=== PATIENT | female | born 1975 | race Caucasian/White ===

== ENCOUNTER 2021-04-24 14:35 | Inpatient (IN) | payer MEDICAID ==
[~2021-04-24] VITALS: Ht 160 cm; Wt 69.7 kg
[~2021-04-24 14:35] MED LIST: AMOX500T2 PO; CLAR-44 PO; FAMO40TA70 PO; HYDR-523 PO; IBUP-2028 PO; METF-414 PO; METO-293 PO
[2021-04-24] MEDS ORDERED: ONDANSETRON HCL 4MG/2ML INJ IV STA (15:54)
[2021-04-24] MEDS ORDERED: MORPHINE SULFATE 4 MG/ML CPJ (NOT FOR IM USE) IV STA (15:54)
[2021-04-24] MEDS ORDERED: SODIUM CHLORIDE 0.9% 1,000 ML IV ONE (16:00)
[2021-04-24 16:42] LABS: BASOPHILS % 0.2 % (0.0-2.0); EOSINOPHILS % 0.5 % (0.0-5.0); HEMATOCRIT. 43.6 % (36.0-48.0); HEMOGLOBIN. 15.1 g/dL (12.0-16.0); LYMPHOCYTES % 12.1 % (20.0-50.0); MEAN CORPUSCULAR HEMOGLOBIN 30.3 pg (28.0-32.0); MEAN CORPUSCULAR VOLUME 87.8 fL (81.0-99.0); MEAN PLATELET VOLUME 8.2 fl (7.4-10.4); MONOCYTES % 6.3 % (2.0-8.0); NEUTROPHILS % 80.9 % (40.0-76.0); PLATELET 309 x1000/uL (130-400); RED BLOOD CELL COUNT 4.96 mill/uL (4.2-5.4); RED CELL DISTRIBUTION WIDTH 12.5 % (11.6-14.6)
[2021-04-24 16:47] LABS: CHLORIDE 102 mEq/L (98-107)
[2021-04-24 16:48] LABS: PROTHROMBIN TIME 10.9 sec (9.6-11.0)
[2021-04-24 16:53] LABS: ETHANOL BLOOD < 10 mg/dL
[2021-04-24] MEDS ORDERED: FENTANYL CITRATE/PF 50MCG/ML 2ML VIAL IV ONE (17:15)
[2021-04-24] MEDS ORDERED: ONDANSETRON HCL 4MG/2ML INJ IV ONE (17:15)
[2021-04-24 17:46] LABS: CLARITY URINE CLEAR (CLEAR); COLOR URINE YELLOW (YELLOW); KETONES URINE 3+ (NEGATIVE); LEUKOCYTE ESTERASE URINE NEGATIVE (NEGATIVE); NITRITE URINE NEGATIVE (NEGATIVE); OCCULT BLOOD URINE 3+ (NEGATIVE); PROTEIN URINE 3+ (NEGATIVE); SPECIFIC GRAVITY URINE 1.043 (1.005-1.030); UROBILINOGEN URINE 0.2 E.U./dL (0.2-1.0)
[2021-04-24 17:57] LABS: *BARBITURATES SCREEN URINE NEGATIVE (NEGATIVE); *BENZODIAZEPINES SCREEN URINE NEGATIVE (NEGATIVE); *COCAINE SCREEN URINE NEGATIVE (NEGATIVE); CANNABINOID URINE SCREEN NEGATIVE (NEGATIVE); METHADONE URINE SCREEN NEGATIVE (NEGATIVE); PHENCYCLIDINE URINE SCREEN NEGATIVE (NEGATIVE)
[2021-04-24 17:59] LABS: *AMPHETAMINES SCREEN URINE NEGATIVE (NEGATIVE)
[2021-04-24 18:15] LABS: OPIATES URINE SCREEN PRESUMTIVE POSITIVE (NEGATIVE)
[2021-04-24] MEDS ORDERED: LORAZEPAM 2MG/ML CPJ IV ONE (19:00)
[2021-04-24] MEDS ORDERED: DEXT 5%/0.9% NACL 1,000 ML IV ONE (19:00)
[2021-04-24] MEDS ORDERED: CLONIDINE 0.1MG TABLET PO PRN (19:15)
[2021-04-24] MEDS ORDERED: DOCUSATE SODIUM 100MG CAPSULE PO PRN (19:15)
[2021-04-24] MEDS ORDERED: IPRATROPIUM/ALBUTEROL 0.5-3(2.5)MG/3ML NEB HHN PRN (19:15)
[2021-04-24] MEDS ORDERED: ACETAMINOPHEN 325MG TABLET PO PRN ×2 (19:15)
[2021-04-24 21:30] VITALS: BP 163/93
[2021-04-24 22:00] VITALS: BP 163/93
[2021-04-24] MEDS: ONDANSETRON HCL 4MG/2ML INJ IV PRN (23:08)
[2021-04-25] VITALS: BP 134/89
[2021-04-25] MEDS: LORAZEPAM 0.5MG TABLET PO PRN ×3 (02:40→18:29)
[2021-04-25] MEDS: HYDROCODONE/ACETAMINOPHEN 5/325MG TABLET PO PRN ×2 (02:41→14:37)
[2021-04-25 04:00] VITALS: BP 140/87
[2021-04-25 06:13] LABS: BASOPHILS % 0.4 % (0.0-2.0); HEMOGLOBIN. 14.5 g/dL (12.0-16.0); LYMPHOCYTES % 8.8 % (20.0-50.0); MEAN CORPUSCULAR HEMOGLOBIN 30.1 pg (28.0-32.0); MEAN PLATELET VOLUME 8.3 fl (7.4-10.4); MONOCYTES % 1.6 % (2.0-8.0); NEUTROPHILS % 89.2 % (40.0-76.0); PLATELET 356 x1000/uL (130-400); RED BLOOD CELL COUNT 4.83 mill/uL (4.2-5.4)
[2021-04-25 06:39] LABS: CHLORIDE 110 mEq/L (98-107)
[2021-04-25 08:00] VITALS: BP 150/91
[2021-04-25] MEDS: ONDANSETRON HCL 4MG/2ML INJ IV PRN (08:54)
[2021-04-25] MEDS: MORPHINE SULFATE 2 MG/ML CPJ (NOT FOR IM USE) IV PRN (08:55)
[2021-04-25 12:00] VITALS: BP 107/76
[2021-04-25] MEDS ORDERED: FAMOTIDINE 40MG TABLET PO SCH (12:15)
[2021-04-25 12:50] LABS: BG BASE EXCESS -5.6 mmol/L (-2.0-2.0); BG CARBOXYHEMOGLOBIN 0.2 % (0.5-1.5); BG DEOXYHEMOGLOBIN 2.5 % (0.0-5.0); BG METHEMOGLOBIN 0.3 % (0.0-1.5); BG OXYGEN SATURATION 97.5 % (92.0-98.5); BG PCO2 30.2 mmHg (35.0-45.0); BG PH 7.392 (7.350-7.450); BG SAMPLE SITE RIGHT BRACHIAL; BG TOTAL HEMOGLOBIN 14.6 g/dL (12.0-18.0); BG VENT MODE ROOM AIR
[2021-04-25] MEDS ORDERED: FAMOTIDINE 20MG TABLET PO SCH (13:00)
[2021-04-25] MEDS: METOCLOPRAMIDE HCL 10MG/2ML VIAL IV SCH ×2 (14:37→18:07)
[2021-04-25] MEDS: SODIUM CHLORIDE 0.45% 1,000 ML IV SCH (14:38)
[2021-04-25 16:00] VITALS: BP 132/85
[2021-04-25 18:27] LABS: HCG SCREEN NEGATIVE
[2021-04-25] MEDS: PANTOPRAZOLE SODIUM 40 MG/VIAL IV SCH (18:29)
[2021-04-25 19:58] VITALS: BP 123/85
[2021-04-25] MEDS: PROCHLORPERAZINE MALEATE 25MG SUPP PR PRN (21:46)
[2021-04-26] VITALS: BP 169/94
[2021-04-26] MEDS: METOCLOPRAMIDE HCL 10MG/2ML VIAL IV SCH ×4 (00:11→17:45)
[2021-04-26] MEDS: MORPHINE SULFATE 2 MG/ML CPJ (NOT FOR IM USE) IV PRN ×2 (00:21→08:31)
[2021-04-26] MEDS: LORAZEPAM 0.5MG TABLET PO PRN ×3 (00:21→15:25)
[2021-04-26] MEDS: SODIUM CHLORIDE 0.45% 1,000 ML IV SCH ×2 (00:30→13:00)
[2021-04-26 07:07] LABS: HEMATOCRIT. 41.6 % (36.0-48.0); HEMOGLOBIN. 14.5 g/dL (12.0-16.0); LYMPHOCYTES % 21.2 % (20.0-50.0); MEAN CORPUSCULAR HEMOGLOBIN 29.7 pg (28.0-32.0); MEAN CORPUSCULAR VOLUME 85.4 fL (81.0-99.0); MEAN PLATELET VOLUME 9.1 fl (7.4-10.4); MONOCYTES % 5.4 % (2.0-8.0); NEUTROPHILS % 72.4 % (40.0-76.0); PLATELET 355 x1000/uL (130-400); RED BLOOD CELL COUNT 4.87 mill/uL (4.2-5.4); RED CELL DISTRIBUTION WIDTH 12.7 % (11.6-14.6)
[2021-04-26 07:10] LABS: CHLORIDE 110 mEq/L (98-107)
[2021-04-26 07:25] LABS: PHOSPHORUS 2.4 mg/dL (2.5-4.9)
[2021-04-26 07:26] LABS: LDL CHOLESTEROL 180 mg/dL (5-100)
[2021-04-26 07:27] LABS: HDL CHOLESTEROL 50 mg/dL (40-59)
[2021-04-26 07:47] VITALS: BP 123/75
[2021-04-26] MEDS: PANTOPRAZOLE SODIUM 40 MG/VIAL IV SCH (08:30)
[2021-04-26] MEDS: ONDANSETRON HCL 4MG/2ML INJ IV PRN ×2 (08:31→15:24)
[2021-04-26] MEDS ORDERED: DEXTROSE 50% WATER 50ML SYRINGE IV PRN (11:15)
[2021-04-26 11:29] VITALS: BP 138/81
[2021-04-26] MEDS: BLOOD SUGAR DIAGNOSTIC STRIP TEST SCH ×3 (12:27→21:16)
[2021-04-26] MEDS ORDERED: INSULIN LISPRO 100 UNITS/ML SUBCUT SCH (12:50)
[2021-04-26] MEDS: INSULIN LISPRO 100 UNITS/ML SUBCUT SCH ×3 (13:03→21:13)
[2021-04-26 15:41] VITALS: BP 145/93
[2021-04-26 20:00] VITALS: BP 134/86
[2021-04-26] MEDS: PROCHLORPERAZINE MALEATE 25MG SUPP PR PRN (20:34)
[2021-04-26] MEDS: HYDROCODONE/ACETAMINOPHEN 5/325MG TABLET PO PRN (20:41)
[2021-04-26] MEDS: ATORVASTATIN CALCIUM 20MG TABLET PO SCH (21:18)
[2021-04-27] VITALS: BP 112/76
[2021-04-27] MEDS: SODIUM CHLORIDE 0.45% 1,000 ML IV SCH ×2 (01:30→14:00)
[2021-04-27] MEDS: ONDANSETRON HCL 4MG/2ML INJ IV PRN ×2 (01:43→11:15)
[2021-04-27] MEDS: METOCLOPRAMIDE HCL 10MG/2ML VIAL IV SCH ×4 (01:44→18:00)
[2021-04-27] MEDS: LORAZEPAM 0.5MG TABLET PO PRN (01:50)
[2021-04-27 04:00] VITALS: BP 149/96
[2021-04-27] MEDS: PANTOPRAZOLE SODIUM 40 MG/VIAL IV SCH (05:13)
[2021-04-27] MEDS: MORPHINE SULFATE 2 MG/ML CPJ (NOT FOR IM USE) IV PRN (05:25)
[2021-04-27] MEDS: BLOOD SUGAR DIAGNOSTIC STRIP TEST SCH ×4 (06:23→21:09)
[2021-04-27 06:27] LABS: CHLORIDE 106 mEq/L (98-107)
[2021-04-27] MEDS: INSULIN LISPRO 100 UNITS/ML SUBCUT SCH ×4 (09:11→21:10)
[2021-04-27 12:20] VITALS: BP 144/99
[2021-04-27] MEDS: HYDROCODONE/ACETAMINOPHEN 5/325MG TABLET PO PRN (15:43)
[2021-04-27 16:15] VITALS: BP 144/79
[2021-04-27] MEDS: CLONAZEPAM 0.5MG TABLET PO SCH (18:00)
[2021-04-27 20:00] VITALS: BP 117/78
[2021-04-27] MEDS: ATORVASTATIN CALCIUM 20MG TABLET PO SCH (21:09)
[2021-04-28] VITALS: BP 148/91
[2021-04-28] MEDS: METOCLOPRAMIDE HCL 10MG/2ML VIAL IV SCH ×5 (01:30→17:27)
[2021-04-28] MEDS: MORPHINE SULFATE 2 MG/ML CPJ (NOT FOR IM USE) IV PRN ×2 (01:36→12:20)
[2021-04-28] MEDS: SODIUM CHLORIDE 0.45% 1,000 ML IV SCH ×2 (02:30→15:00)
[2021-04-28 04:00] VITALS: BP 112/73
[2021-04-28] MEDS: BLOOD SUGAR DIAGNOSTIC STRIP TEST SCH ×4 (08:10→20:28)
[2021-04-28 08:14] VITALS: BP 127/86
[2021-04-28] MEDS: PANTOPRAZOLE SODIUM 40 MG/VIAL IV SCH (08:31)
[2021-04-28] MEDS: CLONAZEPAM 0.5MG TABLET PO SCH ×2 (08:31→17:26)
[2021-04-28] MEDS: INSULIN LISPRO 100 UNITS/ML SUBCUT SCH ×4 (08:38→20:50)
[2021-04-28 12:20] VITALS: BP 127/77
[2021-04-28 16:09] VITALS: BP 126/82
[2021-04-28] MEDS ORDERED: ATOR20TA PO (16:28)
[2021-04-28 20:00] VITALS: BP 113/74
[2021-04-28] MEDS: ATORVASTATIN CALCIUM 20MG TABLET PO SCH (20:44)
[2021-04-29] VITALS: BP 93/59
[2021-04-29] MEDS: METOCLOPRAMIDE HCL 10MG/2ML VIAL IV SCH ×3 (00:57→12:19)
[2021-04-29] MEDS: SODIUM CHLORIDE 0.45% 1,000 ML IV SCH (01:10)
[2021-04-29] MEDS: MORPHINE SULFATE 2 MG/ML CPJ (NOT FOR IM USE) IV PRN (02:31)
[2021-04-29 04:00] VITALS: BP 142/96
[2021-04-29] MEDS: ONDANSETRON HCL 4MG/2ML INJ IV PRN ×2 (04:02→08:34)
[2021-04-29] MEDS: PROCHLORPERAZINE MALEATE 25MG SUPP PR PRN (05:57)
[2021-04-29] MEDS: BLOOD SUGAR DIAGNOSTIC STRIP TEST SCH ×2 (06:47→12:14)
[2021-04-29] MEDS: INSULIN LISPRO 100 UNITS/ML SUBCUT SCH ×2 (06:51→12:20)
[2021-04-29 08:00] VITALS: BP 110/72
[2021-04-29] MEDS: PANTOPRAZOLE SODIUM 40 MG/VIAL IV SCH (08:34)
[2021-04-29] MEDS: CLONAZEPAM 0.5MG TABLET PO SCH (08:34)
[2021-04-29] MEDS ORDERED: INSLIS SUBCUT (09:23)
[2021-04-29 12:00] VITALS: BP 94/67
[2021-04-29] MEDS ORDERED: HYDR-4001 MT (13:48)
[2021-04-29] MEDS: HYDROCODONE/ACETAMINOPHEN 5/325MG TABLET PO PRN (15:12)
[2021-04-29 15:30] VITALS: BP 117/79
[2021-05-04] MEDS ORDERED: PROM25SU57 RC (18:58)
[2021-05-06] MEDS ORDERED: HYDR-4001 MT (13:13)
[2021-05-06] MEDS ORDERED: LORA-250 PO (13:13)
[2021-05-06] MEDS ORDERED: OMEP20CA14 PO (13:13)
[2021-05-06] MEDS ORDERED: ONDA4TAB5 MT (13:13)
== END 2021-04-29 16:00 | disposition home or self-care (01) ==
LOC: ER 14:35 → 6WST 17:41 → EDBEDREQTM 17:44 → EDBEDREQ 17:44 → ENRESERV 20:12 → 6WST 04-28 23:29
PROVIDERS: ADMIT Internal Medicine; ATTEND Internal Medicine
DX: K80.20 Calculus of gallbladder without cholecystitis without obstruction (principal); E11.65 Type 2 diabetes mellitus with hyperglycemia; R65.10 Systemic inflammatory response syndrome (SIRS) of non-infectious origin without acute organ dysfunction; F17.200 Nicotine dependence, unspecified, uncomplicated; D72.829 Elevated white blood cell count, unspecified; F43.10 Post-traumatic stress disorder, unspecified; F41.1 Generalized anxiety disorder; R31.9 Hematuria, unspecified; R82.71 Bacteriuria; R80.9 Proteinuria, unspecified; I10 Essential (primary) hypertension; Z79.84 Long term (current) use of oral hypoglycemic drugs; Z79.899 Other long term (current) drug therapy; Z79.2 Long term (current) use of antibiotics; Z90.49 Acquired absence of other specified parts of digestive tract; R81 Glycosuria; R82.4 Acetonuria
CPT/HCPCS: 36415; 36600; 71045; 76700; 80048; 80053; 80061; 80305; 80320; 81003; 82375; 82805; 82962; 83036; 83605; 83735; 84100; 84443; 84703; 85025; 86850; 86900; 93005; 99285; C1893; C9113; J1815; J2060; J2270; J2405; J2765; J3010; J7030; J7042; G0480

== ENCOUNTER 2021-06-01 08:04 | Inpatient (IN) | payer MEDICAID ==
[~2021-06-01] VITALS: Ht 160 cm; Wt 68.0 kg
[~2021-06-01 08:04] MED LIST changes: -AMOX500T2 PO; +ATOR20TA PO; -CLAR-44 PO; +HYDR-4001 MT; +INSLIS SUBCUT; +LORA-250 PO; +OMEP20CA14 PO; +ONDA4TAB5 MT; +PROM25SU57 RC
[2021-06-01] MEDS ORDERED: MORPHINE SULFATE 4 MG/ML CPJ (NOT FOR IM USE) IV STA (08:27)
[2021-06-01 09:09] LABS: BASOPHILS % 1.1 % (0.0-2.0); EOSINOPHILS % 0.9 % (0.0-5.0); HEMATOCRIT. 29.1 % (36.0-48.0); HEMOGLOBIN. 10.2 g/dL (12.0-16.0); LYMPHOCYTES % 9.7 % (20.0-50.0); MEAN CORPUSCULAR HEMOGLOBIN 29.4 pg (28.0-32.0); MEAN CORPUSCULAR VOLUME 83.7 fL (81.0-99.0); MEAN PLATELET VOLUME 7.3 fl (7.4-10.4); MONOCYTES % 9.5 % (2.0-8.0); NEUTROPHILS % 78.8 % (40.0-76.0); PLATELET 492 x1000/uL (130-400); RED BLOOD CELL COUNT 3.48 mill/uL (4.2-5.4); RED CELL DISTRIBUTION WIDTH 13.5 % (11.6-14.6)
[2021-06-01 09:17] LABS: CHLORIDE 94 mEq/L (98-107)
[2021-06-01 09:20] LABS: HCG SCREEN NEGATIVE
[2021-06-01] MEDS ORDERED: CLINDAMYCIN 600 MG in DEXTROSE 5% WATER 50 ML IV ONE (09:45)
[2021-06-01] MEDS ORDERED: LIDOCAINE HCL/PF 1% 10 MG/ML 5ML VIAL INFIL ONE (11:15)
[2021-06-01] MEDS ORDERED: MORPHINE SULFATE 4 MG/ML CPJ (NOT FOR IM USE) IV ONE (12:00)
[2021-06-01] MEDS ORDERED: DIPHENHYDRAMINE 50MG/ML VIAL IV PRN (12:45)
[2021-06-01] MEDS ORDERED: IPRATROPIUM/ALBUTEROL 0.5-3(2.5)MG/3ML NEB HHN PRN (12:45)
[2021-06-01] MEDS ORDERED: ACETAMINOPHEN 325MG TABLET PO PRN (12:45)
[2021-06-01] MEDS ORDERED: CLONIDINE 0.1MG TABLET PO PRN (12:45)
[2021-06-01] MEDS ORDERED: ONDANSETRON HCL 4MG/2ML INJ IV PRN (12:45)
[2021-06-01] MEDS ORDERED: IOHEXOL-300 100 ML BOTTLE ONE (14:56)
[2021-06-01] MEDS: SODIUM CHLORIDE 0.9% 1,000 ML IV SCH (15:15)
[2021-06-01] MEDS: CLINDAMYCIN 600MG PREMIX 50 ML IV SCH (20:31)
[2021-06-01] MEDS ORDERED: CEFEPIME 2,000 MG in DEXT 5% WATER 100 ML IV SCH (21:00)
[2021-06-02] MEDS ORDERED: INSULIN LISPRO 100 UNITS/ML SUBCUT ONE
[2021-06-02] MEDS ORDERED: DEXTROSE 50% WATER 50ML SYRINGE IV PRN (00:45)
[2021-06-02] MEDS: INSULIN LISPRO (LOW DOSE) 100 UNITS/ML SUBCUT SCH ×3 (03:00→12:44)
[2021-06-02 04:12] VITALS: BP 101/68
[2021-06-02] MEDS: CLINDAMYCIN 600MG PREMIX 50 ML IV SCH (04:24)
[2021-06-02 05:01] LABS: BASOPHILS % 0.4 % (0.0-2.0); EOSINOPHILS % 2.4 % (0.0-5.0); HEMOGLOBIN. 10.7 g/dL (12.0-16.0); LYMPHOCYTES % 19.2 % (20.0-50.0); MEAN CORPUSCULAR HEMOGLOBIN 29.3 pg (28.0-32.0); MEAN CORPUSCULAR VOLUME 84.6 fL (81.0-99.0); MEAN PLATELET VOLUME 7.4 fl (7.4-10.4); MONOCYTES % 6.7 % (2.0-8.0); NEUTROPHILS % 71.3 % (40.0-76.0); PLATELET 560 x1000/uL (130-400); RED BLOOD CELL COUNT 3.66 mill/uL (4.2-5.4); RED CELL DISTRIBUTION WIDTH 13.6 % (11.6-14.6)
[2021-06-02 05:10] LABS: CHLORIDE 100 mEq/L (98-107)
[2021-06-02 05:20] LABS: LDL CHOLESTEROL 91 mg/dL (5-100)
[2021-06-02 05:22] LABS: HDL CHOLESTEROL 20 mg/dL (40-59)
[2021-06-02] MEDS: SODIUM CHLORIDE 0.9% 1,000 ML IV SCH (05:25)
[2021-06-02] MEDS: BLOOD SUGAR DIAGNOSTIC STRIP TEST SCH ×2 (07:20→12:20)
[2021-06-02] MEDS ORDERED: CEFEPIME 2,000 MG in DEXT 5% WATER 100 ML IV SCH (08:00)
[2021-06-02] MEDS ORDERED: CLINDAMYCIN 600MG PREMIX 50 ML IV SCH (12:00)
== END 2021-06-02 12:51 | disposition left against medical advice (07) | DRG 720 ==
LOC: ER 08:36 → 6EST 12:02 → ENRESERV 06-02 03:32
PROVIDERS: ADMIT Internal Medicine; ATTEND Internal Medicine
PROC: 0H98XZZ Drainage of Buttock Skin, External Approach (ICD-10-PCS; principal; 2021-06-01)
DX: A41.9 Sepsis, unspecified organism (principal); E44.0 Moderate protein-calorie malnutrition; E11.65 Type 2 diabetes mellitus with hyperglycemia; E87.1 Hypo-osmolality and hyponatremia; D64.9 Anemia, unspecified; E87.6 Hypokalemia; F17.200 Nicotine dependence, unspecified, uncomplicated; L02.31 Cutaneous abscess of buttock; L03.317 Cellulitis of buttock; F32.9 Major depressive disorder, single episode, unspecified; F41.9 Anxiety disorder, unspecified; Z53.21 Procedure and treatment not carried out due to patient leaving prior to being seen by health care provider; Z79.899 Other long term (current) drug therapy; Z90.49 Acquired absence of other specified parts of digestive tract; Z68.26 Body mass index [BMI] 26.0-26.9, adult
CPT/HCPCS: 36415; 74177; 80053; 80061; 82962; 84145; 84443; 84703; 85025; 93005; 93970; 99285; J0692; J1815; J2270; J2405; J3490; J7060; Q9967

== ENCOUNTER 2021-08-02 07:47 | Emergency (ER) | payer MEDICAID ==
[~2021-08-02] VITALS: Ht 160 cm; Wt 63.0 kg
[2021-08-02] MEDS ORDERED: KETOROLAC 30MG/ML VIAL IV STA (08:11)
[2021-08-02] MEDS ORDERED: SODIUM CHLORIDE 0.9% 1,000 ML IV ONE (08:15)
[2021-08-02 08:59] LABS: BASOPHILS % 0.9 % (0.0-2.0); EOSINOPHILS % 2.1 % (0.0-5.0); HEMATOCRIT. 41.6 % (36.0-48.0); HEMOGLOBIN. 14.7 g/dL (12.0-16.0); LYMPHOCYTES % 12.6 % (20.0-50.0); MEAN CORPUSCULAR HEMOGLOBIN 30.2 pg (28.0-32.0); MEAN CORPUSCULAR VOLUME 85.7 fL (81.0-99.0); MEAN PLATELET VOLUME 7.9 fl (7.4-10.4); MONOCYTES % 7.2 % (2.0-8.0); NEUTROPHILS % 77.2 % (40.0-76.0); PLATELET 412 x1000/uL (130-400); RED BLOOD CELL COUNT 4.85 mill/uL (4.2-5.4); RED CELL DISTRIBUTION WIDTH 13.4 % (11.6-14.6)
[2021-08-02 09:05] LABS: CHLORIDE 102 mEq/L (98-107)
[2021-08-02 09:21] LABS: HCG SCREEN NEGATIVE
[2021-08-02] MEDS ORDERED: ONDANSETRON HCL 4MG/2ML INJ IV NR (10:30)
[2021-08-02] MEDS ORDERED: MORPHINE SULFATE 2 MG/ML CPJ (NOT FOR IM USE) IV NR (10:30)
[2021-08-02 10:58] LABS: CLARITY URINE CLEAR (CLEAR); COLOR URINE YELLOW (YELLOW); KETONES URINE NEGATIVE (NEGATIVE); LEUKOCYTE ESTERASE URINE NEGATIVE (NEGATIVE); NITRITE URINE NEGATIVE (NEGATIVE); OCCULT BLOOD URINE NEGATIVE (NEGATIVE); PH URINE 5.5 (4.5-8.0); PROTEIN URINE NEGATIVE (NEGATIVE); SPECIFIC GRAVITY URINE 1.052 (1.005-1.030); UROBILINOGEN URINE 0.2 E.U./dL (0.2-1.0)
[2021-08-02] MEDS ORDERED: IOHEXOL-300 100 ML BOTTLE ONE (11:07)
[2021-08-02] MEDS ORDERED: DICY10CA88 MT (11:17)
[2021-08-02 12:07] VITALS: BP 145/78
== END 2021-08-02 12:09 | disposition home or self-care (01) ==
LOC: ER 07:47
DX: R10.30 Lower abdominal pain, unspecified (principal); E11.65 Type 2 diabetes mellitus with hyperglycemia; R00.0 Tachycardia, unspecified; R03.0 Elevated blood-pressure reading, without diagnosis of hypertension; T21.23XA Burn of second degree of upper back, initial encounter; S31.829A Unspecified open wound of left buttock, initial encounter; X08.8XXA Exposure to other specified smoke, fire and flames, initial encounter; Y93.89 Activity, other specified; Y92.89 Other specified places as the place of occurrence of the external cause; Z79.84 Long term (current) use of oral hypoglycemic drugs
CPT/HCPCS: 36415; 74177; 80053; 81003; 81025; 83690; 84703; 85025; 93005; 96361; 96374; 96375; 99285; J1885; J2270; J2405; J7030; Q9967

== ENCOUNTER 2021-10-24 19:25 | Emergency (ER) | payer MEDICAID ==
[~2021-10-24] VITALS: Ht 160 cm; Wt 56.0 kg
[~2021-10-24 19:25] MED LIST changes: +DICY10CA88 MT
[2021-10-24 21:37] LABS: BASOPHILS % 0.7 % (0.0-2.0); EOSINOPHILS % 5.3 % (0.0-5.0); HEMOGLOBIN. 12.4 g/dL (12.0-16.0); LYMPHOCYTES % 18.2 % (20.0-50.0); MEAN CORPUSCULAR HEMOGLOBIN 28.6 pg (28.0-32.0); MEAN CORPUSCULAR VOLUME 85.7 fL (81.0-99.0); MEAN PLATELET VOLUME 7.6 fl (7.4-10.4); MONOCYTES % 6.2 % (2.0-8.0); NEUTROPHILS % 69.6 % (40.0-76.0); PLATELET 353 x1000/uL (130-400); RED BLOOD CELL COUNT 4.32 mill/uL (4.2-5.4); RED CELL DISTRIBUTION WIDTH 15.3 % (11.6-14.6)
[2021-10-24 21:43] LABS: CHLORIDE 108 mEq/L (98-107)
[2021-10-24] MEDS: MAGNESIUM/ALUMINUM HYDROXIDE/SIMETHICONE 30ML UDC PO STA ×2 (23:24→23:29)
[2021-10-24] MEDS: ACETAMINOPHEN 325MG TABLET PO STA ×2 (23:25→23:29)
[2021-10-24] MEDS ORDERED: HYDROCODONE/ACETAMINOPHEN 5/325MG TABLET PO ONE (23:45)
[2021-10-24 23:47] VITALS: BP 132/85
[2021-10-24 23:52] LABS: HCG SCREEN NEGATIVE
[2021-10-25] MEDS ORDERED: CLIN300C12 MT (02:45)
[2021-10-25] MEDS ORDERED: IBUP-2028 MT (02:45)
[2021-10-25] MEDS ORDERED: METR500T MT (02:45)
== END 2021-10-25 03:26 | disposition home or self-care (01) ==
LOC: ER 19:25
DX: R10.2 Pelvic and perineal pain (principal); G89.29 Other chronic pain; F41.9 Anxiety disorder, unspecified; F32.9 Major depressive disorder, single episode, unspecified; E11.9 Type 2 diabetes mellitus without complications; Z87.19 Personal history of other diseases of the digestive system; Z90.49 Acquired absence of other specified parts of digestive tract; Z79.899 Other long term (current) drug therapy
CPT/HCPCS: 36415; 76830; 76856; 80053; 82962; 83605; 84703; 85025; 99284

== ENCOUNTER 2022-03-09 08:12 | Emergency (ER) | payer MEDICAID ==
[~2022-03-09] VITALS: Ht 157.5 cm; Wt 75.0 kg
[~2022-03-09 08:12] MED LIST changes: +CLIN300C12 MT; +IBUP-2028 MT; +METR500T MT
[2022-03-09] MEDS ORDERED: LORAZEPAM 1MG TABLET PO ONE (08:45)
[2022-03-09 08:56] LABS: BASOPHILS % 0.3 % (0.0-2.0); EOSINOPHILS % 0.4 % (0.0-5.0); HEMATOCRIT. 41.3 % (36.0-48.0); HEMOGLOBIN. 14.8 g/dL (12.0-16.0); LYMPHOCYTES % 12.5 % (20.0-50.0); MEAN CORPUSCULAR HEMOGLOBIN 31.1 pg (28.0-32.0); MEAN CORPUSCULAR VOLUME 86.8 fL (81.0-99.0); MEAN PLATELET VOLUME 8.2 fl (7.4-10.4); NEUTROPHILS % 77.8 % (40.0-76.0); PLATELET 352 x1000/uL (130-400); RED BLOOD CELL COUNT 4.75 mill/uL (4.2-5.4)
[2022-03-09 09:04] LABS: CHLORIDE 101 mEq/L (98-107)
[2022-03-09 09:11] LABS: ETHANOL BLOOD < 10 mg/dL
[2022-03-09 09:14] LABS: HCG SCREEN NEGATIVE
[2022-03-09 10:32] LABS: CLARITY URINE CLEAR (CLEAR); COLOR URINE DARK YELLOW (YELLOW); KETONES URINE TRACE (NEGATIVE); LEUKOCYTE ESTERASE URINE NEGATIVE (NEGATIVE); NITRITE URINE NEGATIVE (NEGATIVE); OCCULT BLOOD URINE NEGATIVE (NEGATIVE); PROTEIN URINE 2+ (NEGATIVE); SPECIFIC GRAVITY URINE 1.032 (1.005-1.030)
[2022-03-09] MEDS ORDERED: ACETAMINOPHEN 325MG TABLET PO ONE (10:45)
[2022-03-09 10:54] LABS: *AMPHETAMINES SCREEN URINE NEGATIVE (NEGATIVE); *BARBITURATES SCREEN URINE NEGATIVE (NEGATIVE); *BENZODIAZEPINES SCREEN URINE NEGATIVE (NEGATIVE); *COCAINE SCREEN URINE NEGATIVE (NEGATIVE); METHADONE URINE SCREEN NEGATIVE (NEGATIVE); OPIATES URINE SCREEN NEGATIVE (NEGATIVE); PHENCYCLIDINE URINE SCREEN NEGATIVE (NEGATIVE)
[2022-03-09 10:57] LABS: CANNABINOID URINE SCREEN PRESUMTIVE POSITIVE (NEGATIVE)
[2022-03-09] MEDS ORDERED: NITR-87 MT (11:47)
[2022-03-09] MEDS ORDERED: ACET650T37 MT (11:47)
[2022-03-09 12:03] VITALS: BP 140/99
== END 2022-03-09 12:11 | disposition home or self-care (01) ==
LOC: ER 08:21
DX: E11.65 Type 2 diabetes mellitus with hyperglycemia (principal); R30.0 Dysuria; F41.9 Anxiety disorder, unspecified; Z90.49 Acquired absence of other specified parts of digestive tract; Z79.899 Other long term (current) drug therapy
CPT/HCPCS: 36415; 80053; 80305; 80307; 80320; 80329; 81003; 83690; 84703; 85025; 99283; Z7610; G0480